=== PATIENT | female | born 1950 | race Asian ===

== ENCOUNTER → 2019-01-28 | Day surgery (SDC) | payer MEDICARE ==
[~2019-01-28] MED LIST: ALLO100T PO; AMLO5TAB10 PO; ANAS1TAB PO; CRESTOR10 MG PO; ESCITALOPRAM OXA5 M1 PO; HYDROmorphone 2 MG/ML VIAL IV PRN; INSU100C SQ; INSU100V37 SQ; IV RINGERS,LACTATED 1000ML 1,000 ML IV SCH; LIDOCAINE 1% PF 2 ML VIAL. ID PRN; MORPHINE SULFATE 2 MG/ML VIAL. IV PRN; ONDANSETRON PF 4 MG/2 ML VIAL. IV PRN; PATI8.4P PO; PROCHLORPERAZINE 10 MG/2 ML VIAL. IV PRN; PROPOFOL 40 ML IV ONE; fentaNYL PF VIAL 100 MCG/2 ML VIAL IV PRN
[2019-01-28 10:49] VITALS: BP 146/74
--- NOTE | 2019-01-28 10:52 | PREOP HP ---
DATE OF SERVICE: 01/28/2019 DATE OF PROCEDURE: 01/28/2019. REQUESTING PHYSICIAN: Luis Felipe Lord MD REASON FOR PROCEDURE: Colorectal cancer screening and history of anemia. HISTORY OF PRESENT ILLNESS: This is a 68-year-old female with a history of adenomatous polyp. She also has recently been found to have anemia. She has a history of Helicobacter pylori gastritis in 2013. ALLERGIES: PENICILLIN cause hives. PAST MEDICAL HISTORY: 1. Anemia. 2. Diabetes. 3. Kidney disease. 4. Colon polyps. 5. Sleep apnea. 6. Latent tuberculosis. FAMILY MEDICAL HISTORY: Ovarian cancer. No colon cancer. SOCIAL HISTORY: No tobacco, alcohol, or IV drug abuse. REVIEW OF SYSTEMS: A 13-point review of systems was done and is positive as per HPI and otherwise negative. MEDICATIONS: MAR was reviewed. PHYSICAL EXAMINATION: VITAL SIGNS: She is afebrile and her vital signs are stable. GENERAL: She is a well-developed, well-nourished female, in no apparent distress. HEENT: Oropharynx is clear. CARDIOVASCULAR: S1, S2. LUNGS: Clear. ABDOMEN: Normoactive bowel sounds, soft, nontender, nondistended. EXTREMITIES: No edema. NEUROLOGIC: Awake, alert, and oriented x3. ASSESSMENT AND PLAN: 1. Anemia. We will proceed with an upper endoscopy for further evaluation. The risks, benefits including bleeding, perforation, non-diagnosis, and sedation were explained and she has agreed to proceed. 2. Helicobacter pylori. We will evaluate with upper endoscopy. 3. History of colon polyps. We will evaluate with colonoscopy. FATOU DRAKE MD DR: OSCAR/nts JOB#: [id number] / [id number]
--- NOTE | 2019-01-29 15:06 | PATHOLOGY ---
[facility] Accession Number: [id number] . 01 Material submitted: . PART A: small bowel - SMALL BOWEL BIOPSY PART B: stomach - GASTRIC ANTRUM BIOPSY PART C: esophagus - DISTAL ESOPHAGUS BIOPSY. Modifiers: distal PART D: colon - RANDOM COLON BIOPSY PART E: colon - TRANSVERSE COLON POLYP. Modifiers: transverse PART F: colon - SIGMOID COLON POLYP. Modifiers: sigmoid . 01 Clinical history: . Abdominal pain, anemia . 02 Diagnosis: A. Small bowel biopsies: - No significant pathologic abnormalities. . B. Gastric biopsy, antrum: - Chronic gastritis, mild. . C. Esophageal biopsies, distal esophagus: - Segments of hyperplastic squamous esophageal mucosa and gastric mucosa showing chronic inflammation, consistent with reflux esophagitis. . D. Random colon biopsies: - Melanosis coli. . E. Colon biopsies, transverse colon polyp: - Tubular adenoma. . F. Colon biopsies, sigmoid colon polyp: - Tubular adenoma. . (JPM:mmboston; 01/29/2019) [facility]/01/29/2019 . 02 Comment: Sections of the small bowel biopsy reveal segments of duodenal mucosa. Where best oriented, the mucosal villi show no sprue-like changes or significant inflammatory changes. . Sections of the gastric antral biopsy show congestion and mild chronic inflammation. A properly-controlled immunoperoxidase stain for Helicobacter is negative for Helicobacter organisms. . Sections of the distal esophageal biopsy reveal segments of hyperplastic squamous esophageal mucosa and gastric mucosa showing focally active, mild to focal moderate to marked chronic inflammation. The findings are consistent with reflux esophagitis. There is no evidence of Jimenes's change, dysplasia, or malignancy. . Sections of the random colon biopsy reveal multiple segments of colonic mucosa showing melanosis coli. There is no evidence of a chronic destructive colitis, lymphocytic colitis, or collagenous colitis. . Sections of the transverse colon and sigmoid colon biopsies reveal tubular adenomas showing no high grade dysplasia or evidence of malignancy. . Special stain performed: Immunoperoxidase stain for Helicobacter on B1. . (JPM:mml; 01/29/2019) . 02 Electronically signed: . Rome Owusu MD, Pathologist NPI- [id number] . 01 Gross description: . A. Received in formalin labeled "Nance, Renettaben, small bowel BX," are 2 segments of shipman soft tissue measuring 1.3 x 0.2 x 0.2 cm in aggregate dimensions and ranging from 0.6 to 0.7 cm in maximum dimension. The specimen is submitted entirely in cassette A1. . B. Received in formalin labeled Nance, Renettaben, gastric antrum BX," is a single segment of shipman soft tissue measuring 0.5 cm in maximum dimension. The specimen is entirely submitted in cassette B1. . C. Received in formalin labeled "Nance, Rashilaben, distal esophagus BX," are 5 segments of shipman soft tissue measuring 1.5 x 0.9 x 0.2 cm in aggregate dimensions and ranging from 0.3 to 0.6 cm in maximum dimension. The specimen is submitted entirely in cassette C1. . D. Received in formalin labeled "Nance, Rashilaben, random colon BX," are 4 segments of shipman soft tissue measuring 1.3 x 0.6 x 0.2 cm in aggregate dimensions and ranging from 0.3 to 0.5 cm in maximum dimension. The specimen is submitted entirely in cassette D1. . E. Received in formalin labeled "Nnace, Rashdeidreben, transverse colon polyp," are 2 segments of shipman soft tissue measuring 0.5 x 0.3 x 0.3 cm in aggregate dimensions and ranging from 0.1 to 0.4 cm in maximum dimension. The specimen is submitted entirely in cassette E1. . F. Received in formalin labeled "Nance, Rashilaben, sigmoid colon polyp," are 2 segments of shipman soft tissue measuring 0.9 x 0.3 x 0.3 cm in aggregate dimensions and ranging from 0.4 to 0.5 cm in maximum dimension. The specimen is submitted entirely in cassette F1. (TSD; 01/28/2019) TOB/TOB . 02 Pathologist provided ICD-10: K29.50, K21.0, K63.89, D12.3, D12.5 . 02 CPT . 251045, 649665, 164983, 145694, 067819, 113035, [id number] Specimen Comment: A courtesy copy of this report has been sent to Specimen Comment: [phone], . Specimen Comment: Report sent to / DR ALAS Performed at: 01 [facility] [address] [facility] [address], [place] [id number] MD Samm Quinonez MD Phone: [phone] Performed at: 02 [facility] [address] [place], [place] [id number] MD Rome Owusu MD Phone: [phone]
== END ==
LOC: ENDOS 08:53
PROVIDERS: ATTEND Internal Medicine Gastroenterology
DX: K63.5 Polyp of colon (principal); K64.0 First degree hemorrhoids; K57.30 Diverticulosis of large intestine without perforation or abscess without bleeding; K63.89 Other specified diseases of intestine; K31.89 Other diseases of stomach and duodenum; D64.9 Anemia, unspecified; K21.0 Gastro-esophageal reflux disease with esophagitis; E11.9 Type 2 diabetes mellitus without complications; Z86.010 Personal history of colon polyps; G47.30 Sleep apnea, unspecified; Z86.11 Personal history of tuberculosis; Z80.41 Family history of malignant neoplasm of ovary; Z79.899 Other long term (current) drug therapy; Z98.890 Other specified postprocedural states
CPT/HCPCS: 43239; 45380; 88305; 88342; J2704; 82962